=== PATIENT | male | born 1975 | race Caucasian/White ===

== ENCOUNTER 2023-05-12 17:25 | Outpatient (REF) | payer BC, SELFPAY ==
[2023-05-12 19:25] LABS: Anion Gap 6.3 mmol/L (3-11); BUN 22 mg/dL (7-18); CO2 28.7 mmol/L (21.0-32.0); CREATININE 1.1 mg/dL (0.70-1.30); Calcium 9.3 mg/dL (8.5-10.1); Calculated LDL 138 mg/dL (<100); Chloride 104 mmol/L (98-107); Cholesterol 221 mg/dL (<200); Estimated GFR 82.81 (mL/min/1.73m2); Glucose 98 mg/dL (74-106); HDL Cholesterol 65 mg/dL (40-60); Potassium 4.1 mmol/L (3.5-5.1); Sodium 139 mmol/L (136-145); Triglyceride 91 mg/dL (<150)
== END 2023-05-12 17:26 | disposition home or self-care (01) ==
LOC: NCHCN 17:25
PROVIDERS: PCP Physician Assistant; Visit Provider Internal Medicine
DX: Z00.00 Encounter for general adult medical examination without abnormal findings (principal); I10 Essential (primary) hypertension; M54.89 Other dorsalgia
CPT/HCPCS: 80048; 80061; 84443

== ENCOUNTER 2025-02-12 14:38 | Outpatient (REF) | payer BC, SELFPAY | END 2025-02-12 14:39 | disposition home or self-care (01) | LOC: NCHCN 14:38 | PROVIDERS: PCP Physician Assistant; Visit Provider Nurse Practitioner Family | DX: H60.503 Unspecified acute noninfective otitis externa, bilateral (principal) | CPT/HCPCS: 87077; 87070; 87186; 87205 ==